=== PATIENT | female | born 1985 | race Caucasian/White ===

== ENCOUNTER 2016-12-05 14:06 | Emergency (ER) | payer BC ==
[2016-12-05 14:18] VITALS: BP 124/84
--- NOTE | 2016-12-05 14:29 | UC ---
Complaint Female HPI - HPI Summary HPI Summary: vaginal discharge, itch x 3 days discharge is whitish, + odor + burning with urination , no fever, no chills - History Of Current Complaint Chief Complaint: UCGU Stated Complaint: PERSONAL Time Seen by Provider: 12/05/16 14:08 Hx Obtained From: Patient Hx Last Menstrual Period: 11/15/16 Onset/Duration: Gradual Onset, Lasting Days - 3, Still Present Timing: Constant Severity Initially: Moderate Severity Currently: Moderate Character: Burning Aggravating Factor(s): Urination Alleviating Factor(s): Nothing Associated Signs And Symptoms: Positive: Vaginal Discharge. Negative: Fever, Back Pain, Vaginal Bleeding/Discharge, Nausea, Vomiting(# Of Episodes =), Genital Swelling, Genital Blisters, Retained Foregin Body (Specify) - Allergies/Home Medications Allergies/Adverse Reactions: Allergies Allergy/AdvReac Type Severity Reaction Status Date / Time No Known Allergies Allergy Verified 12/05/16 14:11 Home Medications: Home Medications [id number] [Butalbital/ASA/Caffeine 50-325-40 mg] 1 cap PO Q6H PRN 12/05/16 [History Confirmed 12/05/16] Topiramate 1.5 tab PO BID 12/05/16 [History Confirmed 12/05/16] tiZANidine TAB* [Zanaflex TAB*] 2 mg PO TID PRN 12/05/16 [History Confirmed 05/19] PMH/Surg Hx/FS Hx/Imm Hx Previously Healthy: Yes - Surgical History Surgical History: Yes Surgery Procedure, Year, and Place: 2 - Family History Known Family History: Negative: Diabetes - Social History Alcohol Use: Occasionally Substance Use Type: None Smoking Status (MU): Light Every Day Tobacco Smoker Type: Cigarettes Amount Used/How Often: 2 cigarettes daily Review of Systems Constitutional: Negative Skin: Negative Eyes: Negative ENT: Negative Respiratory: Negative Cardiovascular: Negative Gastrointestinal: Negative Genitourinary: Dysuria, Vaginal/Penile Itching, Vaginal/Penile Discharge Is Patient Immunocompromised?: No All Other Systems Reviewed And Are Negative: Yes Physical Exam Triage Information Reviewed: Yes Appearance: Well-Appearing, No Pain Distress, Well-Nourished Vital Signs: Initial Vital Signs Temp 98.9 F 12/05/16 14:14 Pulse 95 10/03/17 14:14 Resp 14 12/05/16 14:14 BP 124/84 12/05/16 14:14 Pulse Ox 100 12/05/16 14:14 Eye Exam: Normal Eyes: Positive: Conjunctiva Clear ENT: Positive: Normal ENT inspection, Hearing grossly normal, Pharynx normal Neck: Positive: Supple, Nontender, No Lymphadenopathy Respiratory: Positive: Chest non-tender, Lungs clear, Normal breath sounds Cardiovascular: Positive: RRR, No Murmur, Pulses Normal Abdominal Exam: Normal Abdomen Description: Positive: Nontender, Soft, Other: - pelvic was not done. Negative: CVA Tenderness (R), CVA Tenderness (L), Distended, Guarding Bowel Sounds: Positive: Present Skin Exam: Normal Complaint Female Dx - Differential Dx/Diagnosis Provider Diagnoses: BV Discharge - Discharge Plan Condition: Stable Disposition: HOME Prescriptions: Metronidazole [Flagyl 500 MG TAB] 500 mg PO BID #14 tab Patient Education Materials: Bacterial Vaginosis (ED) Referrals: Hermilo Scales MD [Primary Care Provider] - 7 Days
== END 2016-12-05 14:33 | disposition home or self-care (01) ==
LOC: UCCORT 14:06
DX: N76.0 Acute vaginitis (principal)
CPT/HCPCS: 81003; 99212; G0463